=== PATIENT | female | born 1980 | race Caucasian/White ===

== ENCOUNTER 2018-06-01 22:51 | Inpatient (IN) | payer SELFPAY ==
[~2018-06-01] VITALS: Ht 157.5 cm; Wt 81.7 kg
[2018-06-01] MEDS ORDERED: SODIUM CHLORIDE 0.9% 1000ML 1,000 ML IV ONE (23:11)
[2018-06-01] MEDS ORDERED: ONDANSETRON HCL 4 MG/2 ML VIAL ONE (23:11)
[2018-06-01 23:21] LABS: BASOPHILS % (AUTO) 0.2 % (0.0-5.0); EOSINOPHILS % (AUTO) 0.2 % (0.0-8.0); HEMATOCRIT 40.8 % (36-48); LYMPHOCYTES % (AUTO) 6.9 % (21.0-51.0); MEAN CORPUSCULAR HGB CONC 33.6 g/dL (32.0-36.0); MEAN CORPUSCULAR VOLUME 86.3 fL (79-99); MONOCYTES % (AUTO) 2.7 % (3.0-13.0); PLATELET COUNT (AUTO) 267 K/uL (130-400); RED BLOOD CELL COUNT(AUTO) 4.73 MIL/uL (4.00-5.50); RED CELL DISTRIBUTION WIDTH 14.3 % (11.0-15.5); WHITE BLOOD COUNT (AUTO) 13.3 K/uL (4.8-10.8)
[2018-06-01 23:27] LABS: CREATININE 0.8 mg/dL (0.5-1.5); POTASSIUM 3.7 mmol/L (3.5-5.1)
[2018-06-01 23:32] LABS: BILIRUBIN,TOTAL 0.4 mg/dL (0.2-1.0); TOTAL PROTEIN, SERUM 8.4 g/dL (6.0-8.3)
[2018-06-01 23:51] LABS: APPEARANCE,URINE Clear (CLEAR); BILIRUBIN,URINE Negative (NEGATIVE); COLOR,URINE Yellow (YELLOW); GLUCOSE, URINE (UA) Negative (NEGATIVE); KETONES,URINE 40 mg/dL (NEGATIVE); LEUKOCYTE ESTERASE ,URINE Negative (NEGATIVE); NITRATE,URINE Negative (NEGATIVE); OCCULT BLOOD,URINE Negative (NEGATIVE); PROTEIN,URINE Negative (NEGATIVE); UROBILINOGEN,URINE 0.2 mg/dL (0.2-1.0)
[2018-06-02] VITALS (23 sets, daily range): BP systolic 93–124; BP diastolic 59–90
[2018-06-02] MEDS ORDERED: KETOROLAC TROMETHAMINE 30MG/ML ONE (00:01)
[2018-06-02] MEDS ORDERED: MORPHINE SULFATE 4 MG/1ML SYG ONE (01:22)
[2018-06-02] MEDS ORDERED: ZOSYN 3.375GM+NS 50ML 50 ML IV ONE (01:22)
[2018-06-02] MEDS ORDERED: SODIUM CHLORIDE 0.9% 50 ML IV ONE (01:23)
[2018-06-02 05:48] LABS: HEMATOCRIT 35.8 % (36-48); MEAN CORPUSCULAR HEMOGLOBIN 29.3 pg (27.0-33.0); MEAN CORPUSCULAR HGB CONC 33.8 g/dL (32.0-36.0); MEAN CORPUSCULAR VOLUME 86.6 fL (79-99); PLATELET COUNT (AUTO) 245 K/uL (130-400); RED BLOOD CELL COUNT(AUTO) 4.13 MIL/uL (4.00-5.50); RED CELL DISTRIBUTION WIDTH 14.1 % (11.0-15.5); WHITE BLOOD COUNT (AUTO) 11.7 K/uL (4.8-10.8)
[2018-06-02 06:08] LABS: ALBUMIN 3.2 g/dL (3.5-5.0); BILIRUBIN,TOTAL 0.6 mg/dL (0.2-1.0); CREATININE 0.8 mg/dL (0.5-1.5); MAGNESIUM 1.9 mg/dL (1.80-2.40); POTASSIUM 4.1 mmol/L (3.5-5.1)
[2018-06-02] MEDS ORDERED: ONDANSETRON HCL 4 MG/2 ML VIAL IVP PRN (07:30)
[2018-06-02] MEDS ORDERED: MORPHINE SULFATE 2 MG/ML 1ML SYG IVP PRN (07:30)
[2018-06-02] MEDS: SODIUM CHLORIDE 0.9% 1000ML 1,000 ML IV SCH ×2 (08:17→17:45)
[2018-06-02] MEDS ORDERED: LACTATED RINGERS 1000ML 1,000 ML IV ONE (10:44)
[2018-06-02] MEDS ORDERED: BUPIVACAINE/PF 0.25% 30ML VIAL IJ ONE (11:20)
[2018-06-02] MEDS ORDERED: LIDOCAINE 1%-EPI 1:100,000 20 ML VIAL IJ ONE (11:20)
[2018-06-02] MEDS ORDERED: LIDOCAINE PF 2% 5ML ABBOJECT ONE (11:22)
[2018-06-02] MEDS ORDERED: FENTANYL CITRATE PF 50 MCG/1 ML 2ML VIAL ONE (11:22)
[2018-06-02] MEDS ORDERED: DEXAMETHASONE SOD PHOSPHATE 10MG/ML 1ML VIAL ONE (11:22)
[2018-06-02] MEDS ORDERED: ONDANSETRON HCL 4 MG/2 ML VIAL ONE (11:22)
[2018-06-02] MEDS ORDERED: NEOSTIGMINE 5MG/5ML SYR IV ONE (11:22)
[2018-06-02] MEDS ORDERED: PROPOFOL 10 MG/ML 20ML VIAL IV ONE (11:22)
[2018-06-02] MEDS ORDERED: MIDAZOLAM HCL 1 MG/ML 2ML VIAL ONE (11:22)
[2018-06-02] MEDS ORDERED: ROCURONIUM 10MG/1ML SYR 10 MG/ML ML ONE (12:07)
[2018-06-02] MEDS ORDERED: GLYCOPYRROLATE 1 MG/5 ML SYRINGE ONE (12:47)
[2018-06-02] MEDS: ZOSYN 3.375GM+NS 50ML 50 ML IV SCH ×3 (13:00→21:14)
[2018-06-02] MEDS ORDERED: MEPERIDINE-PF 25 MG/ML SYG ONE (13:12)
[2018-06-02] MEDS ORDERED: OXYCODONE/ACETAMIN 5/325MG TAB PO PRN (14:45)
[2018-06-03 00:16] VITALS: BP 103/75
[2018-06-03 04:24] VITALS: BP 114/70
[2018-06-03 04:44] LABS: HEMATOCRIT 33.1 % (36-48); MEAN CORPUSCULAR HEMOGLOBIN 29.4 pg (27.0-33.0); MEAN CORPUSCULAR VOLUME 86.5 fL (79-99); PLATELET COUNT (AUTO) 196 K/uL (130-400); RED BLOOD CELL COUNT(AUTO) 3.83 MIL/uL (4.00-5.50); RED CELL DISTRIBUTION WIDTH 14.2 % (11.0-15.5); WHITE BLOOD COUNT (AUTO) 8.7 K/uL (4.8-10.8)
[2018-06-03] MEDS: ZOSYN 3.375GM+NS 50ML 50 ML IV SCH ×2 (05:02→14:00)
[2018-06-03 08:00] VITALS: BP 113/70
[2018-06-03 11:30] VITALS: BP 114/73
[2018-06-03] MEDS ORDERED: IBUPROFEN 800 MG TAB PO PRN (11:45)
[2018-06-03 16:00] VITALS: BP 116/83
== END 2018-06-03 18:36 | disposition home or self-care (01) | DRG 343 ==
LOC: EDH 22:51 → EDHIP 22:52 → 3AH 06-02 02:51
PROVIDERS: ADMIT Internal Medicine Infectious Disease; ATTEND Internal Medicine Infectious Disease
PROC: 0DTJ4ZZ Resection of Appendix, Percutaneous Endoscopic Approach (ICD-10-PCS; principal; 2018-06-02 12:36)
DX: K35.80 Unspecified acute appendicitis (principal); F41.9 Anxiety disorder, unspecified; E66.9 Obesity, unspecified; Z68.33 Body mass index [BMI] 33.0-33.9, adult
CPT/HCPCS: 36415; 74176; 80053; 81003; 81025; 83690; 83735; 84702; 85025; 85027; 87804; 88304; A4344; J1100; J1885; J2001; J2175; J2250; J2270; J2405; J2543; J2704; J2710; J3010; J3490; J7030; J7120

== ENCOUNTER 2019-09-30 08:00 | Emergency (ER) | payer OTHER, SELFPAY ==
[2019-09-30] MEDS ORDERED: IBUPROFEN 600 MG TABLET ONE (08:44)
[2019-09-30] MEDS ORDERED: ACETAMINOPHEN EXTRA STRENGTH 500 MG TABLET ONE (08:44)
[2019-09-30 08:49] LABS: APPEARANCE,URINE Clear (CLEAR); BILIRUBIN,URINE Negative (NEGATIVE); COLOR,URINE Yellow (YELLOW); GLUCOSE, URINE (UA) Negative (NEGATIVE); KETONES,URINE Negative (NEGATIVE); LEUKOCYTE ESTERASE ,URINE Negative (NEGATIVE); NITRATE,URINE Negative (NEGATIVE); OCCULT BLOOD,URINE Negative (NEGATIVE); PROTEIN,URINE Negative (NEGATIVE); UROBILINOGEN,URINE 0.2 mg/dL (0.2-1.0)
[2019-09-30] MEDS ORDERED: SODIUM CHLORIDE 0.9% 1000ML 1,000 ML IV ONE ×2 (09:07→10:20)
[2019-09-30 09:17] LABS: BASOPHILS % (AUTO) 0.4 % (0.0-5.0); HEMATOCRIT 35.4 % (36-48); LYMPHOCYTES % (AUTO) 13.8 % (21.0-51.0); MEAN CORPUSCULAR HEMOGLOBIN 27.5 pg (27.0-33.0); MEAN CORPUSCULAR HGB CONC 32.5 g/dL (32.0-36.0); MEAN CORPUSCULAR VOLUME 84.7 fL (79-99); MONOCYTES % (AUTO) 5.2 % (3.0-13.0); NEUTROPHILS % (AUTO) 80.2 % (40.0-77.0); PLATELET COUNT (AUTO) 142 K/uL (130-400); RED BLOOD CELL COUNT(AUTO) 4.18 MIL/uL (4.00-5.50); WHITE BLOOD COUNT (AUTO) 2.7 K/uL (4.8-10.8)
[2019-09-30 09:25] LABS: CREATININE 0.8 mg/dL (0.5-1.5); POTASSIUM 3.8 mmol/L (3.5-5.1)
[2019-09-30 09:29] LABS: ALBUMIN 3.1 g/dL (3.5-5.0); BILIRUBIN,TOTAL 0.3 mg/dL (0.2-1.0); TOTAL PROTEIN, SERUM 6.9 g/dL (6.0-8.3)
[2019-09-30] MEDS ORDERED: PROCHLORPERAZINE EDISYLATE 10 MG/2 ML VIAL ONE (10:19)
[2019-09-30] MEDS ORDERED: DiphenhydrAMINE HCL 50 MG/ML VIAL ONE (10:19)
[2019-09-30 10:23] LABS: BAND NEUTROPHILS % (MANUAL) 8 % (0-2); BASOPHILS % (MANUAL) 2 % (0-2); LYMPHOCYTES % (MANUAL) 13 % (22-44); MONOCYTES % (MANUAL) 7 % (2-9); REACTIVE LYMPHOCYTES 1 % (0-0); SEGMENTED NEUTROPHILS % 69 % (40-70)
[2019-09-30 10:24] LABS: PLATELET MORPHOLOGY COMMENT ADEQUATE
[2019-09-30 12:05] LABS: APPEARANCE,CSF CLEAR (CLEAR); COLOR,CSF COLORLESS (COLORLESS); CSF TUBE NUMBER 1
[2019-09-30 12:07] LABS: GLUCOSE, CSF 55 mg/dL (40-70); RED BLOOD CELL1,CSF 0 CMM (0-0); TOTAL PROTEIN, CSF 31 mg/dL (15-45); WHITE BLOOD CELL1,CSF 0 CMM (0-5)
== END 2019-09-30 13:07 | disposition home or self-care (01) ==
LOC: EDH 08:00
DX: B34.9 Viral infection, unspecified (principal); Z90.49 Acquired absence of other specified parts of digestive tract; Z79.899 Other long term (current) drug therapy
CPT/HCPCS: 36415; 62270; 70450; 80053; 81003; 81025; 82945; 84157; 85025; 87071; 87205; 87804 ×2; 89051; 96374; 96375; 99285; J0780; J1200; J7030 ×2

== ENCOUNTER 2022-05-13 00:38 | Emergency (ER) | payer BC, SELFPAY ==
[~2022-05-13] VITALS: Ht 157.5 cm; Wt 86.6 kg
[2022-05-13] MEDS ORDERED: HYDRALAZINE 20MG/ML VIAL IV ONE ×2 (01:00)
[2022-05-13] MEDS ORDERED: HYDRALAZINE 20MG/ML VIAL ONE (01:01)
[2022-05-13] MEDS ORDERED: LIDOCAINE HCL 2% VISCOUS 15 ML UDCUP PO ONE (02:00)
[2022-05-13] MEDS ORDERED: MAG/ALUM/SIMETH 30 ML UDCUP PO ONE (02:00)
[2022-05-13 02:42] VITALS: BP 133/87
[2022-05-13 02:44] LABS: BASOPHILS % (AUTO) 0.5 % (0.0-5.0); EOSINOPHILS % (AUTO) 0.7 % (0.0-8.0); HEMATOCRIT 34.9 % (36-48); LYMPHOCYTES % (AUTO) 10.1 % (21.0-51.0); MEAN CORPUSCULAR HEMOGLOBIN 28.3 pg (27.0-33.0); MONOCYTES % (AUTO) 3.2 % (3.0-13.0); NEUTROPHILS % (AUTO) 85.1 % (40.0-77.0); PLATELET COUNT (AUTO) 294 K/uL (130-400); RED BLOOD CELL COUNT(AUTO) 4.06 MIL/uL (4.00-5.50); RED CELL DISTRIBUTION WIDTH 14.3 % (11.0-15.5); WHITE BLOOD COUNT (AUTO) 10.2 K/uL (4.8-10.8)
[2022-05-13] MEDS ORDERED: METOCLOPRAMIDE 10 MG/2 ML VIAL IM ONE (03:00)
[2022-05-13 03:03] LABS: ALBUMIN 3.6 g/dL (3.5-5.0); TOTAL PROTEIN, SERUM 7.5 g/dL (6.0-8.3)
[2022-05-13 03:05] LABS: APPEARANCE,URINE CLEAR (CLEAR); BILIRUBIN,URINE NEGATIVE (NEGATIVE); COLOR,URINE COLORLESS (YELLOW); GLUCOSE, URINE (UA) NEGATIVE (NEGATIVE); KETONES,URINE NEGATIVE (NEGATIVE); LEUKOCYTE ESTERASE ,URINE NEGATIVE Leu/uL (NEGATIVE); NITRATE,URINE NEGATIVE (NEGATIVE); OCCULT BLOOD,URINE NEGATIVE (NEGATIVE); PROTEIN,URINE NEGATIVE (NEGATIVE); UROBILINOGEN,URINE 0.2 mg/dL (0.2-1.0)
[2022-05-13] MEDS ORDERED: OMEP20TA2 PO (03:16)
[2022-05-14] MEDS ORDERED: ONDA4TAB10 PO (09:49)
== END 2022-05-13 03:28 | disposition home or self-care (01) ==
LOC: EDH 00:38
DX: R51.9 Headache, unspecified (principal); I10 Essential (primary) hypertension; K21.9 Gastro-esophageal reflux disease without esophagitis; F41.9 Anxiety disorder, unspecified; E78.00 Pure hypercholesterolemia, unspecified; Z90.89 Acquired absence of other organs; Z98.890 Other specified postprocedural states
CPT/HCPCS: 99284; 96374; 71045; 84484; 80053; 84703; 83690; 85025; 81003; 36415; 93005; 96372; J0360; J2765

== ENCOUNTER 2022-05-14 06:50 | Emergency (ER) | payer BC ==
[~2022-05-14] VITALS: Ht 157.5 cm; Wt 85.7 kg
[~2022-05-14 06:50] MED LIST: OMEP20TA2 PO
[2022-05-14 08:05] LABS: BASOPHILS % (AUTO) 0.5 % (0.0-5.0); EOSINOPHILS % (AUTO) 2.3 % (0.0-8.0); HEMATOCRIT 35.5 % (36-48); LYMPHOCYTES % (AUTO) 24.6 % (21.0-51.0); MEAN CORPUSCULAR HEMOGLOBIN 27.7 pg (27.0-33.0); MEAN CORPUSCULAR HGB CONC 32.1 g/dL (32.0-36.0); MEAN CORPUSCULAR VOLUME 86.2 fL (79-99); MONOCYTES % (AUTO) 4.9 % (3.0-13.0); NEUTROPHILS % (AUTO) 67.3 % (40.0-77.0); PLATELET COUNT (AUTO) 283 K/uL (130-400); RED BLOOD CELL COUNT(AUTO) 4.12 MIL/uL (4.00-5.50); RED CELL DISTRIBUTION WIDTH 14.2 % (11.0-15.5); WHITE BLOOD COUNT (AUTO) 5.7 K/uL (4.8-10.8)
[2022-05-14 08:10] LABS: APPEARANCE,URINE CLEAR (CLEAR); BILIRUBIN,URINE NEGATIVE (NEGATIVE); COLOR,URINE LIGHT-YELLOW (YELLOW); GLUCOSE, URINE (UA) NEGATIVE (NEGATIVE); KETONES,URINE NEGATIVE (NEGATIVE); LEUKOCYTE ESTERASE ,URINE NEGATIVE Leu/uL (NEGATIVE); NITRATE,URINE NEGATIVE (NEGATIVE); OCCULT BLOOD,URINE NEGATIVE (NEGATIVE); PH,URINE 5.5 (5.0-8.0); PROTEIN,URINE NEGATIVE (NEGATIVE); UROBILINOGEN,URINE 0.2 mg/dL (0.2-1.0)
[2022-05-14 08:14] LABS: CREATININE 0.9 mg/dL (0.5-1.5); POTASSIUM 3.3 mmol/L (3.5-5.1)
[2022-05-14 08:18] LABS: ALBUMIN 3.6 g/dL (3.5-5.0); TOTAL PROTEIN, SERUM 7.6 g/dL (6.0-8.3)
[2022-05-14] MEDS ORDERED: HYOSCYAMINE SULFATE 0.125 MG TAB.SUBL SL SCH (08:30)
[2022-05-14] MEDS ORDERED: PANTOPRAZOLE 40 MG/VIAL IVP ONE (08:30)
[2022-05-14] MEDS ORDERED: POTASSIUM CHLORIDE 10MEQ SR TAB PO SCH (08:30)
[2022-05-14] MEDS ORDERED: POTASSIUM CHLORIDE 10MEQ SR TAB PO ONE (09:26)
[2022-05-14] MEDS ORDERED: ONDA4TAB10 PO (09:49)
[2022-05-14] MEDS ORDERED: KETOROLAC 30MG VIAL (30MG/ML) IVP ONE (10:00)
[2022-05-14 10:20] VITALS: BP 130/74
== END 2022-05-14 10:22 | disposition home or self-care (01) ==
LOC: EDH 06:50
DX: R10.13 Epigastric pain (principal); R51.9 Headache, unspecified; R03.0 Elevated blood-pressure reading, without diagnosis of hypertension; E78.00 Pure hypercholesterolemia, unspecified; Z90.89 Acquired absence of other organs; Z98.890 Other specified postprocedural states; Z79.899 Other long term (current) drug therapy
CPT/HCPCS: 99284; 96374; 76705; 96375; 84484; 80053; 83690; 85025; 81003; 36415; 93005; J1885; C9113

== ENCOUNTER 2022-05-20 09:12 | Emergency (ER) | payer BC ==
[~2022-05-20] VITALS: Ht 157.5 cm; Wt 84.8 kg
[~2022-05-20 09:12] MED LIST changes: +ONDA4TAB10 PO
[2022-05-20 09:52] LABS: BASOPHILS % (AUTO) 0.5 % (0.0-5.0); EOSINOPHILS % (AUTO) 1.2 % (0.0-8.0); HEMATOCRIT 37.8 % (36-48); LYMPHOCYTES % (AUTO) 19.9 % (21.0-51.0); MEAN CORPUSCULAR HEMOGLOBIN 27.8 pg (27.0-33.0); MEAN CORPUSCULAR HGB CONC 32.3 g/dL (32.0-36.0); MEAN CORPUSCULAR VOLUME 86.1 fL (79-99); MONOCYTES % (AUTO) 5.6 % (3.0-13.0); NEUTROPHILS % (AUTO) 72.5 % (40.0-77.0); PLATELET COUNT (AUTO) 317 K/uL (130-400); RED BLOOD CELL COUNT(AUTO) 4.39 MIL/uL (4.00-5.50); RED CELL DISTRIBUTION WIDTH 13.8 % (11.0-15.5); WHITE BLOOD COUNT (AUTO) 5.9 K/uL (4.8-10.8)
[2022-05-20 10:02] LABS: APPEARANCE,URINE CLEAR (CLEAR); BILIRUBIN,URINE NEGATIVE (NEGATIVE); COLOR,URINE COLORLESS (YELLOW); GLUCOSE, URINE (UA) NEGATIVE (NEGATIVE); KETONES,URINE NEGATIVE (NEGATIVE); LEUKOCYTE ESTERASE ,URINE NEGATIVE Leu/uL (NEGATIVE); NITRATE,URINE NEGATIVE (NEGATIVE); OCCULT BLOOD,URINE LARGE (NEGATIVE); PROTEIN,URINE NEGATIVE (NEGATIVE); UROBILINOGEN,URINE 0.2 mg/dL (0.2-1.0)
[2022-05-20 10:06] LABS: HCG,QUALITATIVE URINE NEGATIVE (NEGATIVE)
[2022-05-20 10:08] LABS: BACTERIA,URINE RARE /HPF (None Seen); RBC,URINE 0-1 /HPF (0-1); WBC,URINE 0-1 /HPF (0-1)
[2022-05-20 10:08] LABS: CREATININE 0.9 mg/dL (0.5-1.5); POTASSIUM 3.5 mmol/L (3.5-5.1)
[2022-05-20 10:12] LABS: MAGNESIUM 1.9 mg/dL (1.80-2.40); TOTAL PROTEIN, SERUM 8.2 g/dL (6.0-8.3)
[2022-05-20 10:21] LABS: B-TYPE NATRIURETIC PEPTIDE 11 pg/mL (0-100)
[2022-05-20] MEDS ORDERED: KETOROLAC 30MG VIAL (30MG/ML) IVP ONE (11:00)
[2022-05-20] MEDS ORDERED: HYDROXYZINE 25 MG TABLET PO ONE (12:00)
[2022-05-20] MEDS ORDERED: METOPROLOL TARTRATE 25 MG TAB PO ONE (14:30)
[2022-05-20 15:06] VITALS: BP 132/85
== END 2022-05-20 15:08 | disposition home or self-care (01) ==
LOC: EDH 09:12
DX: R07.89 Other chest pain (principal); R03.0 Elevated blood-pressure reading, without diagnosis of hypertension; E78.00 Pure hypercholesterolemia, unspecified; Z98.890 Other specified postprocedural states; Z79.899 Other long term (current) drug therapy
CPT/HCPCS: 99284; 96374; 71045; 82550; 83735; 84484; 80053; 83880; 83690; 85025; 85378; 81001; 81025; 36415; 93005; J1885

== ENCOUNTER 2023-01-28 12:12 | Emergency (ER) | payer BC, OTHER ==
[~2023-01-28] VITALS: Ht 157.5 cm; Wt 78.0 kg
[2023-01-28 13:40] LABS: BASOPHILS % (AUTO) 0.3 % (0.0-5.0); EOSINOPHILS % (AUTO) 0.2 % (0.0-8.0); HEMATOCRIT 38.2 % (36-48); LYMPHOCYTES % (AUTO) 7.3 % (21.0-51.0); MEAN CORPUSCULAR HEMOGLOBIN 28.1 pg (27.0-33.0); MEAN CORPUSCULAR HGB CONC 31.9 g/dL (32.0-36.0); MONOCYTES % (AUTO) 3.5 % (3.0-13.0); NEUTROPHILS % (AUTO) 88.4 % (40.0-77.0); PLATELET COUNT (AUTO) 260 K/uL (130-400); RED BLOOD CELL COUNT(AUTO) 4.34 MIL/uL (4.00-5.50); RED CELL DISTRIBUTION WIDTH 14.1 % (11.0-15.5); WHITE BLOOD COUNT (AUTO) 9.2 K/uL (4.8-10.8)
[2023-01-28 13:42] LABS: APPEARANCE,URINE CLOUDY (CLEAR); BILIRUBIN,URINE NEGATIVE (NEGATIVE); COLOR,URINE LIGHT-YELLOW (YELLOW); GLUCOSE, URINE (UA) NEGATIVE (NEGATIVE); KETONES,URINE 5 mg/dL (NEGATIVE); LEUKOCYTE ESTERASE ,URINE NEGATIVE Leu/uL (NEGATIVE); NITRATE,URINE NEGATIVE (NEGATIVE); OCCULT BLOOD,URINE NEGATIVE (NEGATIVE); PH,URINE 6.5 (5.0-8.0); PROTEIN,URINE NEGATIVE (NEGATIVE); UROBILINOGEN,URINE 0.2 mg/dL (0.2-1.0)
[2023-01-28 13:44] LABS: HCG,QUALITATIVE URINE NEGATIVE (NEGATIVE)
[2023-01-28 13:46] LABS: BACTERIA,URINE RARE /HPF (None Seen); MUCUS,URINE RARE LPF (None Seen); RBC,URINE 0-1 /HPF (0-1); SQUAMOUS EPITHELIAL CELL,UR MOD /HPF (0-2); WBC,URINE 0-1 /HPF (0-1)
[2023-01-28 13:55] LABS: CREATININE 0.8 mg/dL (0.5-1.5); POTASSIUM 3.7 mmol/L (3.5-5.1)
[2023-01-28 14:00] LABS: ALBUMIN 3.7 g/dL (3.5-5.0); TOTAL PROTEIN, SERUM 7.6 g/dL (6.0-8.3)
[2023-01-28] MEDS ORDERED: SULF1TAB89 PO (15:08)
[2023-01-28 15:15] VITALS: BP 134/84
== END 2023-01-28 15:15 | disposition home or self-care (01) ==
LOC: EDH 12:12
DX: N75.0 Cyst of Bartholin's gland (principal); I10 Essential (primary) hypertension; E78.00 Pure hypercholesterolemia, unspecified; Z90.49 Acquired absence of other specified parts of digestive tract; Z98.51 Tubal ligation status
CPT/HCPCS: 10060; 36415; 80053; 81001; 81025; 85025

== ENCOUNTER → 2024-01-27 | Outpatient (CLI) | payer BC ==
[~2024-01-27] MED LIST changes: +GADOTERATE MEGLUMINE 10 MMOL/20 ML VIAL IV ONE; +ONDA-243 PO; -ONDA4TAB10 PO; +SULF1TAB89 PO
== END | disposition home or self-care (01) ==
LOC: RAH 07:45
PROVIDERS: ATTEND Urology
DX: N28.89 Other specified disorders of kidney and ureter (principal); D30.00 Benign neoplasm of unspecified kidney
CPT/HCPCS: 74183; A9575

== ENCOUNTER 2024-06-30 09:56 | Emergency (ER) | payer BC ==
[~2024-06-30] VITALS: Ht 157.5 cm; Wt 81.2 kg
[~2024-06-30 09:56] MED LIST changes: -GADOTERATE MEGLUMINE 10 MMOL/20 ML VIAL IV ONE
--- NOTE | 2024-06-30 10:19 | ERN ---
General Chief Complaint: Chest Wall Pain Stated Complaint: CHEST PAIN Time Seen by MD: 10:13 Time Seen by Midlevel: 10:13 Source: patient History of Present Illness Initial Comments 43-year-old female with a past medical history of chronic anemia presenting to the ER for evaluation of palpitations and chest pressure that started just prior to arrival. Patient was seen by her primary care doctor earlier this week where she was found to have a hemoglobin of 7.3. She does report having a previous history of anemia requiring iron supplementations. She denies taking any supplementations recently. Allergies: Coded Allergies: No Known Drug Allergies (Unverified Allergy, Unknown, 06/02/18) Home Meds Active Scripts Ferrous Sulfate (Ferrous Sulfate) 324 Mg (65 Mg Iron) Tablet., 1 TAB PO DAILY for 7 Days, #7 TAB 0 Refills Prov:PEACE REDDING 06/30/24 Sulfamethoxazole/Trimethoprim (Sulfamethoxazole-Tmp Ss Tablet) 1 Each Tablet, 1 EACH PO BID for 10 Days, #20 TAB Prov:SARINA HARRIS 01/28/23 Ondansetron (Ondansetron Odt) 4 Mg Tab.rapdis, 4 MG PO TID PRN for NAUSEA, #15 TAB 0 Refills Prov:LALO ROMAN MD 05/14/22 Omeprazole Magnesium (Prilosec Otc) 20 Mg Tablet., 20 MG PO DAILY, #30 TAB Prov:ELBERT GALINDO MD 05/13/22 Past Medical History Past Medical History: Anemia, High Cholesterol Past Surgical History: Appendectomy, Other, BTL Surgical History Other: TIB FIB REPAIR Family History Family History: HTN Social History Social History: Negative, Lives with family ROS Dictation CONSTITUTIONAL: NEGATIVE EXCEPT FOR HPI HEAD/FACE: NEGATIVE EXCEPT FOR HPI EENT: NEGATIVE EXCEPT FOR HPI RESPIRATORY: NEGATIVE EXCEPT FOR HPI GASTROINTESTINAL/ABDOMINAL: NEGATIVE EXCEPT FOR HPI GENITOURINARY: NEGATIVE EXCEPT FOR HPI MUSCULOSKELETAL: NEGATIVE EXCEPT FOR HPI INTEGUMENTARY: NEGATIVE EXCEPT FOR HPI NEUROLOGICAL/PSYCH: NEGATIVE EXCEPT FOR HPI HEMATOLOGIC/LYMPHATIC: NEGATIVE EXCEPT FOR HPI ALL SYSTEMS NEGATIVE, EXCEPT NOTED ABOVE. 13 POINT REVIEW OF SYSTEMS ASSESSED AND ALL NEGATIVE EXCEPT FOR ABOVE. Physical Exam Physical Exam Dictation Vital Signs reviewed General Appearance: Alert, oriented x 3, no acute distress, well developed, nourished. Head and Face: non-traumatic. Eyes: PERRL, pink conjunctivas, eyelid no trauma, anterior chamber with arcus senilis. Ears: Pinnas intact and no signs of trauma or erythema ear canals clear and no discharge TM no erythema Nose: No discharge, no bleeding. Oropharynx: Mouth normal, tongue pink, pharynx clear,no erythema, tonsils no exudates, no abscesses noted, mucous membrane moist Neck: Supple, non-tender, no thyromegaly, no masses, no JVD, no bruits Breast:Deferred Chest:No tenderness, no crepitus, no paradoxical movement, no retractions Lungs:Clear, well-ventilated, symmetric, no rales, no wheezing, no rhonchi, no stridor, good breath sounds bilaterally Heart: Regular rate, regular rhythm, no murmur, no gallops Vascular: no peripheral edema, Abdomen: Soft, positive bowel sounds, nondistended, no guarding, nontender, no rebound, no masses no hepatomegaly, no splenomegaly, no Cunningham's sign, no hernias. Rectal: Deferred Genital: Deferred Neurological: Normal speech, motor function intact, sensory function intact Musculoskeletal: Neck nontender, full range of motion, back nontender, full range of motion, Extremities: nontender, full range of motion Skin: Color pink, dry, no turgor, no rash, no lacerations, no abrasions, no contusions. Lymphatic: Deferred Results Laboratory and Microbiology Lab and Micro Result Laboratory Tests Test 06/30/24 10:18 06/30/24 10:28 06/30/24 10:38 White Blood Count 7.2 K/uL (4.8-10.8) Red Blood Count 3.50 MIL/uL (4.00-5.50) L Hemoglobin 7.6 g/dL (12.0-16.0) L Hematocrit 26.0 % (36-48) L Mean Corpuscular Volume 74.3 fL (79-99) L Mean Corpuscular Hemoglobin 21.7 pg (27.0-33.0) L Mean Corpuscular Hemoglobin Concent 29.2 g/dL (32.0-36.0) L Red Cell Distribution Width 15.9 % (11.0-15.5) H Platelet Count 368 K/uL (130-400) Mean Platelet Volume 9.4 fL (7.5-10.5) Immature Granulocyte % (Auto) 0.7 % (0-1) Neutrophils (%) (Auto) 72.6 % (40.0-77.0) Lymphocytes (%) (Auto) 18.9 % (21.0-51.0) L Monocytes (%) (Auto) 5.8 % (3.0-13.0) Eosinophils (%) (Auto) 1.4 % (0.0-8.0) Basophils (%) (Auto) 0.6 % (0.0-5.0) Neutrophils # (Auto) 5.2 K/uL (1.8-7.7) Lymphocytes # (Auto) 1.4 K/uL (1.0-4.8) Monocytes # (Auto) 0.4 K/uL (0.1-1.0) Eosinophils # (Auto) 0.10 K/uL (0.00-0.70) Basophils # (Auto) 0.04 K/uL (0.00-0.20) Absolute Immature Granulocyte (auto 0.05 K/uL (0-1) Nucleated Red Blood Cells 0.0 % (0.0-0.19) Red Blood Cell Morphology See comments Sodium Level 134 mmol/L (136-145) L Potassium Level 3.9 mmol/L (3.5-5.1) Chloride Level 99 mmol/L (101-111) L Carbon Dioxide Level 28 mmol/L (21-32) Blood Urea Nitrogen 12 mg/dL (7-18) Creatinine 0.7 mg/dL (0.5-1.0) Glomerular Filtration Rate Calc 110 mL/min (>90) Random Glucose 99 mg/dL (70-105) Total Calcium 8.9 mg/dL (8.5-10.1) Total Creatine Kinase 31 U/L (21-232) # Troponin I High Sensitivity < 4 ng/L (4-50) L B-Type Natriuretic Peptide 8 pg/mL (0-100) Urine Color COLORLESS (YELLOW) Urine Appearance CLEAR (CLEAR) Urine pH 5.5 (5.0-8.0) Urine Specific Inez 1.008 (1.001-1.031) Urine Protein NEGATIVE mg/dL (NEGATIVE) Urine Glucose (UA) NEGATIVE mg/dL (NEGATIVE) Urine Ketones NEGATIVE mg/dL (NEGATIVE) Urine Occult Blood NEGATIVE (NEGATIVE) Urine Nitrate NEGATIVE (NEGATIVE) Urine Bilirubin NEGATIVE mg/dL (NEGATIVE) Urine Urobilinogen 0.2 mg/dL (0.2-1.0) Urine Leukocyte Esterase NEGATIVE Starr/uL Troponin I < 0.05 ng/mL (0.00-0.05) Labs Reviewed?: Yes EKG/XRAY/US/CT/MRI EKG Comment Date: June 30, 2024 Time: 10:04 a.m. Ventricular rate: 115 beats per minute MA interval: 128 QRS duration: 83 QT/QTc: 287/380 EKG interpretation: Sinus tachycardia with a ventricular rate of 115 beats per minute, no ST elevations or bundle branch blocks Reviewed by ED Attending MDM MDM: 43-year-old female with a past medical history of chronic anemia presenting to the ER for evaluation of palpitations and chest pressure that started just prior to arrival. Patient was seen by her primary care doctor earlier this week where she was found to have a hemoglobin of 7.3. She does report having a previous history of anemia requiring iron supplementations. She denies taking any supplementations recently. On arrival patient is tachycardic in the 120s with a normal blood pressure. The remainder of her vital signs are stable. She is in no acute distress. She has a GCS of 15 and is neurologically intact. Initial CBC shows a hemoglobin of 7.6 so she is in slight increase from her previous hemoglobin earlier this week. There was no leukocytosis. Her chemistries are unremarkable. Her urine does not show any evidence of inf ection. Her chest x-ray does not show any acute cardiopulmonary process. On repeat evaluation patient did report her palpitations improving and states her chest pain has completely resolved. I have given her the option to stay in the hospital for symptomatic anemia however she refuses. She specifically denies any active bleeding. Denies any vaginal bleeding, rectal bleeding, or hematemesis at this time. I will prescribe her a short course of ferrous sulfate until she can see her primary care doctor. Patient states she already has an appointment with her primary care doctor in three days and will be following up. She was advised to return to the ER if she develops any new or worsening symptoms. Patient agrees with this plan and is comfortable for dis charge. Differential diagnosis: Anemia, electrolyte abnormality, dehydration, acute coronary syndrome There are no social concerns with this patient. Prescription drug management Prescriptions will include: Ferrous sulfate Medical management and examination interpretation discussions were had by me with other qualified healthcare professionals as indicated for the patient's ca re. ED Course Orders Procedure Category Date Status Time 12 Lead Ekg Tracing- EKG 06/30/24 Logged Technical 10:02 Vital Signs Per CPOE 06/30/24 Transmitted Routine 10:04 B-Type Natriuretic LAB 06/30/24 Complete Peptide 10:04 Chest 1vw RAD 06/30/24 Resulted 10:04 Oxygen By Nc/Pulse Ox CPOE 06/30/24 Transmitted 10:04 Maintain Iv CPOE 06/30/24 Transmitted 10:04 Iv Insertion CPOE 06/30/24 Transmitted 10:04 Cardiac Monitoring CPOE 06/30/24 Transmitted 10:04 Pulse Oximetry With CPOE 06/30/24 Transmitted Vs And Prn 10:04 Cbc With Differential LAB 06/30/24 Complete 10:04 Activity: Br W/Brp CPOE 06/30/24 Transmitted With Assist 10:04 Creatine Kinase, Total LAB 06/30/24 Complete 10:04 Urinalysis Profile LAB 06/30/24 Complete 10:04 Troponin Poc Order LAB 06/30/24 Complete Only 10:04 Bedside Troponin-I LAB.ER 06/30/24 In Process (Poc) 10:04 Basic Metabolic Panel LAB 06/30/24 Complete 10:04 Troponin I High LAB 06/30/24 Complete Sensitivity 10:13 Vital Signs Date Time Temp Pulse Resp B/P (MAP) Pulse Ox O2 Delivery O2 Flow Rate FiO2 06/30/24 11:54 98.2 84 18 109/78 98 Room Air* 0 06/30/24 10:44 98.4 105 16 125/80 99 Room Air* 0 06/30/24 09:59 99.7 128 18 151/100 100 Room Air 0 HEART Score Response (Comments) Value History: Low suspicion (0) 0 EKG: Normal 0 Age: < 45yrs (0) 0 Risk Factors: No known risk factors (0) 0 Initial Troponin: Normal limit (0) 0 HEART Score Risk: Low Risk for MACE (1-3) Total 0 DX & DISP Disposition: Discharge Departure Impression: Primary Impression: Iron deficiency anemia Condition: Stable Scripts Ferrous Sulfate (Ferrous Sulfate) 324 Mg (65 Mg Iron) Tablet.dr 1 TAB PO DAILY for 7 Days, #7 TAB 0 Refills Prov: PEACE REDDING 06/30/24 Additional Instructions: Your hemoglobin today is 7.6 which is an increase from your previous hemoglobin. Your palpitations are most likely related to your anemia. I will give a short course of iron supplementation until you can see your doctor. The remainder of your physical examination is unremarkable. Your cardiac enzymes are negative. Your EKG does not show any evidence of a heart attack or any other abnormality. Make sure you keep your appointment with your primary care doctor on Wednesday. If you develop any new or worsening symptoms please report to the ER for further evaluation. Referrals: MARIELOS ZURITA (PCP) Time of Disposition: 11:40 I have reviewed the case, and I agree with, Diagnosis and Plan I performed the substantive portion of the visit. I have reviewed and personally made and approve the management plan that is documented in the note by myself or the NILO. I acknowledge for responsibility for the patient's management plan. PEACE REDDING Jun 30, 2024 10:19
[2024-06-30 10:27] LABS: BASOPHILS # (AUTO) 0.04 K/uL (0.00-0.20); BASOPHILS % (AUTO) 0.6 % (0.0-5.0); EOSINOPHILS % (AUTO) 1.4 % (0.0-8.0); IMMATURE GRANULOCYTE ABSOLUTE 0.05 K/uL (0-1); LYMPHOCYTES # (AUTO) 1.4 K/uL (1.0-4.8); LYMPHOCYTES % (AUTO) 18.9 % (21.0-51.0); MEAN CORPUSCULAR HEMOGLOBIN 21.7 pg (27.0-33.0); MEAN CORPUSCULAR HGB CONC 29.2 g/dL (32.0-36.0); MEAN CORPUSCULAR VOLUME 74.3 fL (79-99); MONOCYTES # (AUTO) 0.4 K/uL (0.1-1.0); MONOCYTES % (AUTO) 5.8 % (3.0-13.0); NEUTROPHILS # (AUTO) 5.2 K/uL (1.8-7.7); NEUTROPHILS % (AUTO) 72.6 % (40.0-77.0); PLATELET COUNT (AUTO) 368 K/uL (130-400); RED CELL DISTRIBUTION WIDTH 15.9 % (11.0-15.5); WHITE BLOOD COUNT (AUTO) 7.2 K/uL (4.8-10.8)
[2024-06-30 10:43] LABS: CREATININE 0.7 mg/dL (0.5-1.0); POTASSIUM 3.9 mmol/L (3.5-5.1)
[2024-06-30 11:06] LABS: APPEARANCE,URINE CLEAR (CLEAR); BILIRUBIN,URINE NEGATIVE (NEGATIVE); COLOR,URINE COLORLESS (YELLOW); GLUCOSE, URINE (UA) NEGATIVE (NEGATIVE); KETONES,URINE NEGATIVE (NEGATIVE); LEUKOCYTE ESTERASE ,URINE NEGATIVE Leu/uL (NEGATIVE); NITRATE,URINE NEGATIVE (NEGATIVE); OCCULT BLOOD,URINE NEGATIVE (NEGATIVE); PH,URINE 5.5 (5.0-8.0); PROTEIN,URINE NEGATIVE (NEGATIVE); UROBILINOGEN,URINE 0.2 mg/dL (0.2-1.0)
[2024-06-30 11:11] LABS: ADD UA MICROSCOPIC NO
[2024-06-30 11:38] LABS: B-TYPE NATRIURETIC PEPTIDE 8 pg/mL (0-100)
[2024-06-30 11:54] VITALS: BP 109/78; PULSE 84; RESP 18; TEMP 98.2; O2SAT 98
--- NOTE | 2024-06-30 12:02 | HMCIMG ---
CHEST 1VW HISTORY: Chest pain COMPARISON: 05/20/2022 FINDINGS: A frontal projection of the chest was obtained. No acute pulmonary infiltrates is seen. The heart is normal in size. Prominent interstitial markings are seen. No evidence of aortic calcification is seen. IMPRESSION: 1. No acute pulmonary infiltrate is seen.
[2024-06-30] MEDS ORDERED: FERR324T4 PO (12:03)
--- NOTE | 2024-06-30 18:59 | EKG ---
[facility] Test Date: 2024-06-30 Test Time: 10:04:53 Pat Name: EMMANUEL ROBERT Department: ED Room: Gender: F Patient Services Coordinator: [id number] : 1980 Requested By: LELAND NUNES Order Number: [id number] Reading MD: Chapo Davis Measurements Intervals Thornton Rate: 115 P: 72 TX: 128 QRS: 28 QRSD: 83 T: 242 QT: 287 QTc: 398 Interpretive Statements Sinus tachycardia Probable left atrial enlargement Nonspecific T abnormalities, lateral leads Compared to ECG 05/20/2022 09:24:55 Sinus rhythm no longer present Sinus arrhythmia no longer present T-wave abnormality still present Electronically Signed On 06-30-2024 19:11:16 [employer] OFFICER by Chapo Davis Please click the below link to view image of tracing.
== END 2024-06-30 12:10 | disposition home or self-care (01) ==
LOC: EDH 09:56
DX: D50.9 Iron deficiency anemia, unspecified (principal); E78.00 Pure hypercholesterolemia, unspecified; Z79.899 Other long term (current) drug therapy; Z90.49 Acquired absence of other specified parts of digestive tract; Z98.51 Tubal ligation status; Z98.890 Other specified postprocedural states
CPT/HCPCS: 36415; 71045; 80048; 81003; 82550; 83880; 84484; 85025; 93005

== ENCOUNTER 2024-09-25 22:42 | Emergency (ER) | payer BC ==
[~2024-09-25] VITALS: Ht 157.5 cm; Wt 83.5 kg
[~2024-09-25 22:42] MED LIST changes: +FERR324T4 PO
[2024-09-26 01:29] LABS: BASOPHILS # (AUTO) 0.06 K/uL (0.00-0.20); BASOPHILS % (AUTO) 0.8 % (0.0-5.0); EOSINOPHILS % (AUTO) 2.7 % (0.0-8.0); HEMATOCRIT 33.6 % (36-48); IMMATURE GRANULOCYTE ABSOLUTE 0.01 K/uL (0-1); LYMPHOCYTES # (AUTO) 1.3 K/uL (1.0-4.8); LYMPHOCYTES % (AUTO) 17.9 % (21.0-51.0); MEAN CORPUSCULAR HEMOGLOBIN 22.6 pg (27.0-33.0); MEAN CORPUSCULAR HGB CONC 30.1 g/dL (32.0-36.0); MEAN CORPUSCULAR VOLUME 75.2 fL (79-99); MONOCYTES # (AUTO) 0.3 K/uL (0.1-1.0); MONOCYTES % (AUTO) 4.5 % (3.0-13.0); NEUTROPHILS # (AUTO) 5.4 K/uL (1.8-7.7); PLATELET COUNT (AUTO) 343 K/uL (130-400); RED BLOOD CELL COUNT(AUTO) 4.47 MIL/uL (4.00-5.50); WHITE BLOOD COUNT (AUTO) 7.4 K/uL (4.8-10.8)
[2024-09-26 01:34] LABS: CREATININE 0.8 mg/dL (0.5-1.0); POTASSIUM 3.8 mmol/L (3.5-5.1)
[2024-09-26] MEDS ORDERED: IOHEXOL-350 75 ML VIAL IV ONE (02:06)
--- NOTE | 2024-09-26 02:53 | ERN ---
General Chief Complaint: Foreign Body Stated Complaint: C/O "SOMETHING STUCK IN THROAT" Time Seen by MD: 00:08 Time Seen by Midlevel: 00:08 Source: patient History of Present Illness Initial Comments Patient is a 44-year-old female with no significant past medical history presenting to the emergency department with a foreign body sensation that has been progressively worsening over the last three weeks. Patient denies any shortness of breath, or drooling. Denies any past medical history. Denies any surgical history. She states she was still able to swallow solids and liquids Allergies: Coded Allergies: No Known Drug Allergies (Unverified Allergy, Unknown, 06/02/18) Home Meds Active Scripts Ferrous Sulfate (Ferrous Sulfate) 324 Mg (65 Mg Iron) Tablet., 1 TAB PO DAILY for 7 Days, #7 TAB 0 Refills Prov:PEACE REDDING 06/30/24 Sulfamethoxazole/Trimethoprim (Sulfamethoxazole-Tmp Ss Tablet) 1 Each Tablet, 1 EACH PO BID for 10 Days, #20 TAB Prov:SARINA HARRIS 01/28/23 Ondansetron (Ondansetron Odt) 4 Mg Tab.rapdis, 4 MG PO TID PRN for NAUSEA, #15 TAB 0 Refills Prov:LALO ROMAN MD 05/14/22 Omeprazole Magnesium (Prilosec Otc) 20 Mg Tablet.dr, 20 MG PO DAILY, #30 TAB Prov:ELBERT GALINDO MD 05/13/22 Past Medical History Past Medical History: No Pertinent History Past Surgical History: Appendectomy, Other Surgical History Other: TUBAL LIGATION Family History Family History: HTN Social History Social History: Negative, Lives with family Female( History) LMP: Sep 20, 2024 Results Laboratory and Microbiology Lab and Micro Result Laboratory Tests Test 09/26/24 01:15 White Blood Count 7.4 K/uL (4.8-10.8) Red Blood Count 4.47 MIL/uL (4.00-5.50) Hemoglobin 10.1 g/dL (12.0-16.0) L Hematocrit 33.6 % (36-48) L Mean Corpuscular Volume 75.2 fL (79-99) L Mean Corpuscular Hemoglobin 22.6 pg (27.0-33.0) L Mean Corpuscular Hemoglobin Concent 30.1 g/dL (32.0-36.0) L Red Cell Distribution Width 18.0 % (11.0-15.5) H Platelet Count 343 K/uL (130-400) Mean Platelet Volume 10.1 fL (7.5-10.5) Immature Granulocyte % (Auto) 0.1 % (0-1) Neutrophils (%) (Auto) 74.0 % (40.0-77.0) Lymphocytes (%) (Auto) 17.9 % (21.0-51.0) L Monocytes (%) (Auto) 4.5 % (3.0-13.0) Eosinophils (%) (Auto) 2.7 % (0.0-8.0) Basophils (%) (Auto) 0.8 % (0.0-5.0) Neutrophils # (Auto) 5.4 K/uL (1.8-7.7) Lymphocytes # (Auto) 1.3 K/uL (1.0-4.8) Monocytes # (Auto) 0.3 K/uL (0.1-1.0) Eosinophils # (Auto) 0.20 K/uL (0.00-0.70) Basophils # (Auto) 0.06 K/uL (0.00-0.20) Absolute Immature Granulocyte (auto 0.01 K/uL (0-1) Nucleated Red Blood Cells 0.0 % (0.0-0.19) Red Blood Cell Morphology See comments Sodium Level 138 mmol/L (136-145) Potassium Level 3.8 mmol/L (3.5-5.1) Chloride Level 99 mmol/L (101-111) L Carbon Dioxide Level 30 mmol/L (21-32) Blood Urea Nitrogen 8 mg/dL (7-18) Creatinine 0.8 mg/dL (0.5-1.0) Glomerular Filtration Rate Calc 93 mL/min (>90) Random Glucose 103 mg/dL (70-105) Total Calcium 9.7 mg/dL (8.5-10.1) Serum Test, Qualitative NEGATIVE (NEGATIVE) ED Course Orders Procedure Category Date Status Time Cbc With Differential LAB 09/26/24 Complete 00:39 Basic Metabolic Panel LAB 09/26/24 Complete 00:39 Testing, LAB 09/26/24 Complete Serum Hcg 00:39 Ct Neck Soft Tiss CT 09/26/24 Taken W/Contrast 00:39 Iohexol (Omnipaque) PHA 09/26/24 Complete 02:06 Current Medications Medications (Trade) Dose Ordered Sig/Shanell Route PRN Reason Start Time Stop Time Status Last Admin Dose Admin Iohexol (Omnipaque) 75 ml STK-MED ONCE IV 09/26/24 02:06 09/26/24 02:09 DC Vital Signs Date Time Temp Pulse Resp B/P (MAP) Pulse Ox O2 Delivery O2 Flow Rate FiO2 09/25/24 22:45 98.1 109 24 152/101 100 Room Air DX & DISP Disposition: Discharge Departure Impression: Primary Impression: Cervical lymphadenopathy Condition: Stable Additional Instructions: Your blood work today is unremarkable. Your CT scan of the neck reveals prominent lymph nodes in your neck otherwise the remainder of your CT scan is unremarkable. You will need to follow up with an ENT specialist/GI specialist for further evaluation. Return to the ER if you develop any new or worsening symptoms Referrals: MARIELOS ZURITA (PCP) PINEDA DEAN III, MD, NICOLE M MD Time of Disposition: 03:41 I have reviewed the case, and I agree with, Diagnosis and Plan I performed the substantive portion of the visit. I have reviewed and personally made and approve the management plan that is documented in the note by myself or the NILO. I acknowledge for responsibility for the patient's manage ment plan. PEACE REDDIGN Sep 26, 2024 02:53
[2024-09-26 04:02] VITALS: BP 138/91; PULSE 98; RESP 19; TEMP 98.7; O2SAT 100
--- NOTE | 2024-09-26 08:16 | HMCIMG ---
Exam Type: CT NECK SOFT TISS W/CONTRAST Clinical Information: r/o abscess Comparison: None CT Dose Index (CTDI): 7.98 mGy Dose Length Product (DLP): 178.1 total mGy-cm PROTOCOL: Photography is done at 3.8 millimeter thick intervals for the head. The study was performed in the axial plane, and reconstructed and photographed in sagittal and coronal planes as well. Findings: No lymphadenopathy is seen. No fluid collections or masses are identified. The vascular, muscular, as well as subcutaneous structures are preserved. No significant paranasal sinus pathology is seen. The base of the skull is unremarkable. There are no significant upper airway abnormalities. IMPRESSION: Normal CT of the neck. This study was performed using dose reduction techniques to include automated exposure control and/or adjustment of the mA and/or kV according to patient size.
== END 2024-09-26 04:03 | disposition home or self-care (01) ==
LOC: EDH 22:42
DX: R59.0 Localized enlarged lymph nodes (principal); Z90.49 Acquired absence of other specified parts of digestive tract; Z98.51 Tubal ligation status; Z79.899 Other long term (current) drug therapy
CPT/HCPCS: 99284; 80048; 84703; 85025; 36415; 70491; Q9967; 99283

== ENCOUNTER 2025-04-26 19:04 | Emergency (ER) | payer BC ==
[~2025-04-26] VITALS: Ht 157.5 cm; Wt 80.3 kg
--- NOTE | 2025-04-26 19:08 | NUR ---
UA CUP PROVIDED
--- NOTE | 2025-04-26 20:00 | ERN ---
General Chief Complaint: Abdominal Pain Stated Complaint: LEFT UPPER QUADRANT PAIN Time Seen by MD: 19:08 History of Present Illness Initial Comments 4-year-old female, healthy, except for GERD and diverticulosis comes in with left upper quadrant pain times two days. She describes it as a stitch in her side. Antacids did not help relieve the pain. She finds it lying on the right side of her body helps reduce the pain. No other associated symptoms. No fevers no chills no change in her bowel habits and no dysuria. She is not having her menses. Allergies: Coded Allergies: No Known Drug Allergies (Unverified Allergy, Unknown, 06/02/18) Home Meds Active Scripts Ferrous Sulfate (Ferrous Sulfate) 324 Mg (65 Mg Iron) Tablet., 1 TAB PO DAILY for 7 Days, #7 TAB 0 Refills Prov:PEACE REDDING 06/30/24 Sulfamethoxazole/Trimethoprim (Sulfamethoxazole-Tmp Ss Tablet) 1 Each Tablet, 1 EACH PO BID for 10 Days, #20 TAB Prov:SARINA HARRIS 01/28/23 Ondansetron (Ondansetron Odt) 4 Mg Tab.rapdis, 4 MG PO TID PRN for NAUSEA, #15 TAB 0 Refills Prov:LALO ROMAN MD 05/14/22 Omeprazole Magnesium (Prilosec Otc) 20 Mg Tablet.dr, 20 MG PO DAILY, #30 TAB Prov:ELBERT GALINDO MD 05/13/22 Past Medical History Past Medical History: Diverticulosis, Other Medical History Other: GASTRITIS, Past Surgical History: Appendectomy, Other, BTL Surgical History Other: LEFT LEG Family History Family History: HTN Social History Social History: Negative, Lives with family Female( History) LMP: Apr 07, 2025 Constitutional: (-) chills, (-) diaphoresis, (-) fever, (-) malaise, (-) weakness, (-) other documentation EENTM: (-) eye pain, (-) blurred vision, (-) tearing, (-) double vision, (-) ear pain, (-) ear discharge, (-) nose pain, (-) nose congestion, (-) throat pain, (-) Throat swelling, (-) mouth pain, (-) tooth pain, (-) mouth swelling, (-) other documentation Respiratory: (-) cough, (-) orthopnea, (-) short of breath, (-) stridor, (-) wheezing, (-) other documentation Cardiovascular: (-) chest pain, (-) edema, (-) palpitations, (-) syncope, (-) dyspnea on exertion, (-) other documentation Gastrointestinal/Abdominal: (-) nausea, (-) vomiting, (-) diarrhea, (-) abdominal pain, (-) abdominal distention, (-) constipation, (-) rectal bleeding, (-) dark stool/melena, (-) other documentation Genitourinary: (-) vaginal discharge, (-) vaginal bleeding, (-) dysuria, (-) frequency, (-) hematuria, (-) pain, (-) other documentation Musculoskeletal: (+) Flank Pain Skin: (-) laceration, (-) contusion, (-) abrasion, (-) abscess, (-) rash, (-) change in color, (-) change in hair, (-) change in nails, (-) diaphoresis, (-) dryness, (-) other documentation Physical Exam General Appearance: (+) no apparent distress Orientation: (+) alert, (+) oriented x 3 Head/Face Trauma: No Eye: bilateral eye normal inspection, bilateral eye PERRL, bilateral eye EOMI Ear, Nose, Throat: (+) hearing grossly normal, (+) normal ENT inspection, (+) moist mucous membraine Neck: (+) normal inspection, (+) supple, (+) full range of motion Respiratory: (+) chest non-tender, (+) lungs clear, (+) well ventilated Respiratory Comment Unable to elicit pain palpating her left ribs or left costal margin. Heart: (+) regular, (+) no gallop Vascular: (+) no edema, (+) normal peripheral pulse Vascular Comment Radial pulses are thready Gastrointestinal: (+) soft, (+) non-tender, (+) bowel sound present Gastrointestinal Comment Patient having normal bowel movements and passing gas. Results Laboratory and Microbiology Lab and Micro Result Laboratory Tests Test 04/26/25 20:11 04/26/25 20:55 Urine Color COLORLESS (YELLOW) Urine Appearance CLEAR (CLEAR) Urine pH 7.0 (5.0-8.0) Urine Specific [place] 1.007 (1.001-1.031) Urine Protein NEGATIVE mg/dL (NEGATIVE) Urine Glucose (UA) NEGATIVE mg/dL (NEGATIVE) Urine Ketones NEGATIVE mg/dL (NEGATIVE) Urine Occult Blood NEGATIVE (NEGATIVE) Urine Nitrate NEGATIVE (NEGATIVE) Urine Bilirubin NEGATIVE mg/dL (NEGATIVE) Urine Urobilinogen 0.2 mg/dL (0.2-1.0) Urine Leukocyte Esterase NEGATIVE Starr/uL Urine HCG, Qualitative NEGATIVE (NEGATIVE) White Blood Count 8.5 K/uL (4.8-10.8) Red Blood Count 4.29 MIL/uL (4.00-5.50) Hemoglobin 12.1 g/dL (12.0-16.0) Hematocrit 36.9 % (36-48) Mean Corpuscular Volume 86.0 fL (79-99) Mean Corpuscular Hemoglobin 28.2 pg (27.0-33.0) Mean Corpuscular Hemoglobin Concent 32.8 g/dL (32.0-36.0) Red Cell Distribution Width 14.0 % (11.0-15.5) Platelet Count 240 K/uL (130-400) Mean Platelet Volume 9.9 fL (7.5-10.5) Immature Granulocyte % (Auto) 0.4 % (0-1) Neutrophils (%) (Auto) 76.2 % (40.0-77.0) Lymphocytes (%) (Auto) 14.5 % (21.0-51.0) L Monocytes (%) (Auto) 6.7 % (3.0-13.0) Eosinophils (%) (Auto) 1.7 % (0.0-8.0) Basophils (%) (Auto) 0.5 % (0.0-5.0) Neutrophils # (Auto) 6.5 K/uL (1.8-7.7) Lymphocytes # (Auto) 1.2 K/uL (1.0-4.8) Monocytes # (Auto) 0.6 K/uL (0.1-1.0) Eosinophils # (Auto) 0.14 K/uL (0.00-0.70) Basophils # (Auto) 0.04 K/uL (0.00-0.20) Absolute Immature Granulocyte (auto 0.03 K/uL (0-1) Nucleated Red Blood Cells 0.0 % (0.0-0.19) Sodium Level 136 mmol/L (136-145) Potassium Level 3.9 mmol/L (3.5-5.1) Chloride Level 102 mmol/L (101-111) Carbon Dioxide Level 29 mmol/L (21-32) Blood Urea Nitrogen 9 mg/dL (7-18) Creatinine 0.7 mg/dL (0.5-1.0) Glomerular Filtration Rate Calc 109 mL/min (>90) Random Glucose 96 mg/dL (70-105) Total Calcium 9.2 mg/dL (8.5-10.1) Magnesium Level 2.20 mg/dL (1.80-2.40) Total Bilirubin 0.5 mg/dL (0.2-1.0) Aspartate Amino Transf (AST/SGOT) 9 U/L (10-37) L Alanine Aminotransferase (ALT/SGPT) 15 U/L (12-78) Alkaline Phosphatase 95 U/L (50-136) Total Protein 7.2 g/dL (6.0-8.3) Albumin 3.5 g/dL (3.5-5.0) Lipase 32 U/L (16-77) MDM MDM: Differential diagnosis: Muscle pull, electrolyte abnormality, dehydration, constipation, diverticulitis, renal stone Rationale: Tests considered and ordered secondary to shared decision making include: Previous outside records reviewed: Old ER visits. Risk of complication and/or morbidity or mortality of patient management: None Medications-Per medication reconciliation Need for hospitalization: Patient does meet criteria for hospitalization. Need for emergency major/minor surgery: No There are no social concerns with this patient. Prescription drug management Prescriptions will include symptomatic care Patient's prior external medical records from other ER visits were reviewed by me as indicated. Prior testing and results from previous visits were reviewed. Prior tests were taken into account with medical decision making and resource utilization, independent historian/historians were used to obtain complete [facility] history. I independently interpreted the test that were performed, results were reviewed by me and considered findings on radiology if ordered. Laboratory studies are normal UA is normal and CT scan does not show any kidney stones diverticulitis or signs of inflammation in the abdomen. She does have a high left splenic flexure in her colon and there is some stool trapped in there. ED Course Orders Procedure Category Date Status Time Cbc With Differential LAB 04/26/25 Complete 19:37 Comprehensive LAB 04/26/25 Complete Metabolic Panel 19:37 ,Urine Test LAB 04/26/25 Complete 19:37 Urinalysis Profile LAB 04/26/25 Complete 19:37 Lactated Ringers PHA 04/26/25 In Process 1000ml (Lactated 19:37 Lipase LAB 04/26/25 Complete 19:37 Orphenadrine Citrate PHA 04/26/25 Complete (Norflex) 20:00 Magnesium LAB 04/26/25 Complete 19:37 Ct Abdomen/Pelvis CT 04/26/25 Taken W/Wo Contras 22:33 Iohexol (Omnipaque) PHA 04/26/25 Complete 23:28 Current Medications Medications (Trade) Dose Ordered Sig/Shanell Route PRN Reason Start Time Stop Time Status Last Admin Dose Admin Iohexol (Omnipaque) 35,000 mg STK-MED ONCE IV 04/26/25 23:28 04/26/25 23:29 DC Lactated Ringer's (Lactated Ringers 1000ml) 1,000 ml BOLUS IV 04/26/25 19:37 05/26/25 19:36 04/26/25 21:30 Orphenadrine Citrate (Norflex) 60 mg ONCE IVP 04/26/25 20:00 04/26/25 23:59 DC 04/26/25 21:30 Vital Signs Date Time Temp Pulse Resp B/P (MAP) Pulse Ox O2 Delivery O2 Flow Rate FiO2 04/26/25 21:12 98.1 99 20 154/90 99 Room Air* 0 21 04/26/25 19:05 98.2 108 20 167/87 100 Room Air DX & DISP Disposition: Discharge Departure Impression: Primary Impression: Constipation Additional Impressions: Gas pain, Abdominal gas pain Condition: Stable Additional Instructions: Your left flank pain maybe due to constipation or stool getting stuck at the splenic flexure. I recommend MiraLax. I see no evidence of diverticulitis or kidney stones or abnormal masses in her abdomen. If this pain continues please follow-up with your primary care physician. As of right now you have no signs of a urinary tract infection or any infection. Referrals: MARIELOS ZURITA (PCP) ANKITA REYNA MD Apr 26, 2025 20:00
--- NOTE | 2025-04-26 20:11 | NUR ---
UA COLLECTED AND SENT
[2025-04-26 20:26] LABS: ADD UA MICROSCOPIC NO; APPEARANCE,URINE CLEAR (CLEAR); GLUCOSE, URINE (UA) NEGATIVE (NEGATIVE); LEUKOCYTE ESTERASE ,URINE NEGATIVE Leu/uL (NEGATIVE); NITRATE,URINE NEGATIVE (NEGATIVE); OCCULT BLOOD,URINE NEGATIVE (NEGATIVE)
[2025-04-26 20:29] LABS: HCG,QUALITATIVE URINE NEGATIVE (NEGATIVE)
[2025-04-26 21:14] LABS: IMMATURE GRANULOCYTE ABSOLUTE 0.03 K/uL (0-1); NUCLEATED RED BLOOD CELLS 0.0 % (0.0-0.19); PLATELET COUNT (AUTO) 240 K/uL (130-400); RED BLOOD CELL COUNT(AUTO) 4.29 MIL/uL (4.00-5.50); RED CELL DISTRIBUTION WIDTH 14.0 % (11.0-15.5); WHITE BLOOD COUNT (AUTO) 8.5 K/uL (4.8-10.8)
[2025-04-26 21:25] LABS: CREATININE 0.7 mg/dL (0.5-1.0); GLOMERULAR FILTR. RATE CALC 109.0 mL/min (>90); GLUCOSE,RANDOM 96.0 mg/dL (70-105); SODIUM SERUM 136.0 mmol/L (136-145); UREA NITROGEN, BLOOD 9.0 mg/dL (7-18)
[2025-04-26] MEDS: LACTATED RINGERS 1000ML IV SCH (21:30)
[2025-04-26] MEDS: ORPHENADRINE 60MG/2ML IVP SCH (21:30)
[2025-04-26 21:37] LABS: ASPARTATE AMINOTRANSFERASE 9.0 U/L (10-37); TOTAL PROTEIN, SERUM 7.2 g/dL (6.0-8.3)
--- NOTE | 2025-04-26 21:43 | NUR ---
ASSUMED PT CARE
[2025-04-26] MEDS ORDERED: IOHEXOL 350 MG/ML 100ML INFUS..BTL IV ONE (23:28)
[2025-04-27 00:31] VITALS: BP 145/75; PULSE 85; RESP 20; TEMP 98.1; O2SAT 100
--- NOTE | 2025-04-27 01:10 | HMCIMG ---
EXAM: CT Abdomen and Pelvis with and without IV contrast. CLINICAL HISTORY: Patient presents with left upper quadrant pain. TECHNIQUE: Axial computed tomography images of the abdomen and pelvis with and without intravenous contrast. CONTRAST: Omnipaque [id number]. COMPARISON: Prior CT abdomen and pelvis dated 06/02/18. FINDINGS: LUNG BASES: The lung bases are clear. No pleural effusions. LIVER: Mild hepatomegaly. A 1.5 x 1.5 x 1.0 cm cyst is seen in the left hepatic lobe. GALLBLADDER AND BILE DUCTS: The gallbladder is normal. No radiopaque gallstones. No biliary ductal dilatation. PANCREAS: Unremarkable. SPLEEN: Unremarkable. ADRENAL GLANDS: Unremarkable. KIDNEYS, URETERS, AND BLADDER: A partially exophytic enhancing lesion in the interpolar region of the right kidney measures 1.5 x 1.7 x 1.7 cm, suggesting a neoplastic process. The left kidney is unremarkable. No hydronephrosis, hydroureter, or urinary calculi. STOMACH AND BOWEL: Mild colonic diverticulosis with acute diverticulitis at the splenic flexure. No obstruction. APPENDIX: No CT evidence of acute appendicitis. PERITONEUM: No free fluid. No free air. LYMPH NODES: No lymphadenopathy. REPRODUCTIVE: A 2.2 x 2.0 cm corpus luteum is present in the left ovary. Otherwise unremarkable. VASCULATURE: No abdominal aortic aneurysm. BONES: No aggressive osseous lesion. No acute osseous pathology. IMPRESSION: Mild colonic diverticulosis with acute diverticulitis at the splenic flexure. A new finding. A small right renal mass. There is a mild interval increase in the size of the mass. /[place]
== END 2025-04-27 00:38 | disposition home or self-care (01) ==
LOC: EDH 19:04
DX: K59.00 Constipation, unspecified (principal); R14.1 Gas pain; K57.32 Diverticulitis of large intestine without perforation or abscess without bleeding; Z79.899 Other long term (current) drug therapy; Z82.49 Family history of ischemic heart disease and other diseases of the circulatory system; Z87.19 Personal history of other diseases of the digestive system; Z90.49 Acquired absence of other specified parts of digestive tract; Z98.51 Tubal ligation status
CPT/HCPCS: 99284; 74178; 96374; 83735; 80053; 83690; 85025; 81003; 81025; 36415; J7120; Q9967; J2360